=== PATIENT | male | born 1950 | race Caucasian/White ===

== ENCOUNTER 2024-03-28 15:15 | Outpatient (CLI) | payer MEDICARE, OTHER ==
[2024-03-28 20:47] LABS: BASOPHILS % (AUTO) 0.3 %; EOSINOPHILS # (AUTO) 0.2 10^3/uL (0.0-0.7); EOSINOPHILS % (AUTO) 2.1 %; HCT - HEMATOCRIT 28.9 % (42.0-52.0); HGB - HEMOGLOBIN 9.2 g/dL (14.0-18.0); LYMPHOCYTES # (AUTO) 1.6 10^3/uL (1.5-3.5); LYMPHOCYTES % (AUTO) 16.4 %; MEAN CORPUSCULAR HEMOGLOBIN 30.3 pg (27.0-31.0); MEAN CORPUSCULAR HGB CONC 31.8 g/dL (32.0-36.0); MEAN CORPUSCULAR VOLUME 95.1 fL (80.0-94.0); MONOCYTES # (AUTO) 1.2 10^3/uL (0.0-1.0); NEUTROPHILS # (AUTO) 6.4 10^3/uL (1.5-6.6); NEUTROPHILS % (AUTO) 67.5 %; PLT - PLATELET COUNT 333 10^3/uL (130-450); RED BLOOD COUNT 3.04 10^6/uL (4.70-6.10); RED CELL DISTRIBUTION WIDTH 13.4 % (12.0-15.0); WHITE BLOOD COUNT 9.5 x10^3/uL (4.8-10.8)
[2024-03-28 20:57] LABS: ALBUMIN 2.9 g/dL (3.2-5.5); ALBUMIN/GLOBULIN RATIO 0.7 (1.0-2.2); BILIRUBIN,TOTAL 0.8 mg/dL (0.2-1.0); CALCIUM 9.5 mg/dL (8.5-10.3); CREATININE 0.6 mg/dL (0.6-1.3); POTASSIUM 3.8 mmol/L (3.5-4.5)
--- NOTE | 2024-03-29 09:57 | XRAY Report ---
PROCEDURE: Chest 2V INDICATIONS: LEG EDEMA, BILATERAL TECHNIQUE: 2 views of the chest were obtained. COMPARISON: None. FINDINGS: Surgical changes and devices: None. Lungs and pleura: No pleural effusions or pneumothorax. Lungs are clear. Mediastinum: Mediastinal contours appear normal. Heart size is normal. Bones and chest wall: No suspicious bony lesions. Overlying soft tissues appear unremarkable. IMPRESSION: Normal two-view chest x-ray Reviewed by: Sathish Cui MD on 03/29/2024 8:56 AM NAK[facility] Approved by: Sathish Cui MD on 03/29/2024 8:56 AM NAK[facility] Station ID: [id number]
== END 2024-03-28 15:30 | disposition home or self-care (01) ==
LOC: DI.N 15:15
PROVIDERS: ATTEND Physician Assistant
DX: R60.0 Localized edema (principal)
CPT/HCPCS: 36415; 80053; 83880; 85025

== ENCOUNTER 2024-04-05 15:39 | Outpatient (CLI) | payer MEDICARE, OTHER ==
[2024-04-05 19:35] LABS: CREATININE,URINE 185.5 mg/dL; MICROALBUM/CREATININE RATIO,UR 10.2 ug/mg (<30.0); MICROALBUMIN,URINE 1.9 mg/dL
[2024-04-05 19:37] LABS: URIC ACID 5.5 mg/dL (4.4-7.6)
[2024-04-05 19:49] LABS: THYROID STIMULATING HORMONE 3.33 uIU/mL (0.34-5.60)
[2024-04-05 22:27] LABS: ESTIMATED AVERAGE GLUCOSE 154 mg/dL (70-100)
== END 2024-04-05 15:40 | disposition home or self-care (01) ==
LOC: LAB.N 15:39
PROVIDERS: ATTEND Family Medicine
DX: D64.9 Anemia, unspecified (principal); E11.9 Type 2 diabetes mellitus without complications; M19.90 Unspecified osteoarthritis, unspecified site
CPT/HCPCS: 36415; 82043; 82570; 82607; 82728; 82746; 83036; 83540; 84443; 84466; 84550; 85651

== ENCOUNTER 2024-04-15 14:52 | Outpatient (CLI) | payer MEDICARE, OTHER ==
[2024-04-18 17:08] LABS: ANTINUCLEAR ANTIBODIES IFA Negative (.)
== END 2024-04-15 14:53 | disposition home or self-care (01) ==
LOC: LAB 14:52
PROVIDERS: ATTEND Nurse Practitioner Family
DX: R70.0 Elevated erythrocyte sedimentation rate (principal); M25.50 Pain in unspecified joint
CPT/HCPCS: 36415; 85651; 86038; 86141

== ENCOUNTER 2024-04-15 15:31 | Outpatient (CLI) | payer MEDICARE, OTHER | END 2024-04-15 15:32 | disposition home or self-care (01) | LOC: LAB 15:31 | PROVIDERS: ATTEND Nurse Practitioner Family | DX: R70.0 Elevated erythrocyte sedimentation rate (principal); M25.50 Pain in unspecified joint ==

== ENCOUNTER 2024-04-21 16:09 | Outpatient (CLI) | payer MEDICARE, OTHER | END 2024-04-21 16:10 | disposition home or self-care (01) | LOC: LAB 16:09 | PROVIDERS: ATTEND Nurse Practitioner Family | DX: M25.50 Pain in unspecified joint (principal); R79.82 Elevated C-reactive protein (CRP) | CPT/HCPCS: 36415; 86140; 86200 ==